=== PATIENT | female | born 1945 | race Caucasian/White ===

== ENCOUNTER → 2016-08-13 | Outpatient (REF) | payer MEDICARE ==
[2016-08-13 19:47] LABS: BILIRUBIN,URINE Negative (Negative); CLARITY,URINE Clear; COLOR,URINE Yellow; GLUCOSE, URINE (UA) 2+ (Negative); LEUKOCYTE ESTERASE, URINE Negative (Negative); PH,URINE 6.5 (5.0 - 8.0); UROBILINOGEN,URINE 0.2 mg/dL (0.2-1.0)
== END ==
LOC: LAB 15:42
PROVIDERS: ATTEND Obstetrics & Gynecology
DX: R32 Unspecified urinary incontinence (principal)
CPT/HCPCS: 81003; 87088

== ENCOUNTER 2016-08-16 10:50 | Outpatient (RCR) | payer MEDICARE, OTHER ==
[~2016-08-16 10:50] MED LIST: ALEN70TA47 PO; ATOR20TA PO; BUDE10.2 IH; CALC500T55 PO; CALC600T12 PO; CHLO25TA2 PO; CLPD75T PO; FLUT100B IH; FURO40TA4 PO; GLMP2T GT; HYDR-3702 PO; HYDR-3922 PO; INSASP1U SQ; INSU100I21 SQ; INSU100V5 SC; LOSA50TA2 PO; METO50TA7 PO; MTP50T PO; PAMI30VI8 SC; POTA99TA3 PO; PRED5TAB56 PO; VIT D PO
== END 2016-11-13 17:06 | disposition home or self-care (01) ==
LOC: DT 10:50
PROVIDERS: ATTEND Family Medicine
DX: E11.65 Type 2 diabetes mellitus with hyperglycemia (principal)
CPT/HCPCS: 97802

== ENCOUNTER → 2016-08-30 | Outpatient (CLI) | payer MEDICARE, OTHER | LOC: RAD 09:01 | PROVIDERS: ATTEND Family Medicine | DX: I65.23 Occlusion and stenosis of bilateral carotid arteries (principal); R26.9 Unspecified abnormalities of gait and mobility; R29.6 Repeated falls; R55 Syncope and collapse | CPT/HCPCS: 70544; 70551; 93880 ==

== ENCOUNTER → 2016-09-04 | Outpatient (CLI) | payer MEDICARE, OTHER | LOC: RAD 09:51 | PROVIDERS: ATTEND Family Medicine | DX: Z86.73 Personal history of transient ischemic attack (TIA), and cerebral infarction without residual deficits (principal); R29.6 Repeated falls | CPT/HCPCS: 70450 ==

== ENCOUNTER → 2016-09-14 | Outpatient (CLI) | payer MEDICARE, OTHER | LOC: RT 09:11 | PROVIDERS: ATTEND Internal Medicine | DX: R07.9 Chest pain, unspecified (principal) | CPT/HCPCS: 93005 ==

== ENCOUNTER → 2016-09-27 | Outpatient (CLI) | payer MEDICARE, OTHER ==
[~2016-09-27] MED LIST changes: +ROPIVACAINE 1% 10 MG/ML (NAROPIN) 10 ML AMPUL ONE; +SODIUM CHLORIDE VIAL (PF) 10 ML IV ONE; +methylPREDNISolone 80 MG/ML (DEPO MEDROL) VIAL IM ONE
--- NOTE | 2016-09-28 09:42 | PAIN MANAGEMENT ---
Date of note: 09/27/2016 Procedure: SI joint injection with fluoroscopy Fluoroscopy exposure time: 36 seconds The patient was referred to anesthesia for the purpose of a right SI joint injection secondary to acute right SI joint pain. She has radicular symptoms across her hip and buttock area that come down toward her knee. She does have some radiating symptoms down into her toes. She is not new to our services. She has received injections before by Larry Toure. Fluoroscopy was used for needle tip placement for a total time of 36 seconds. Based on presentation today we decided to proceed forward with a right SI joint injection. The patient was taken to the operating room for the use of fluoroscopy for placement of the needle. Informed consent was obtained. The patient was placed in the prone position. Landmarks were identified. The needle was advanced, as stated, utilizing aseptic technique and fluoroscopy for guidance of needle. Isovue 250, 0.3 mL was injected with proper spread of the Isovue. No apparent uptake to any vascular areas. Then 10 mL of 0.2% ropivacaine with Depo-Medrol 80 mg and normal saline were injected with negative aspiration every 2 mL. This was utilizing a 25-gauge spinal needle. Negative aspiration for heme, negative paresthesia. The needle was then removed. The patient was then turned to the sitting position where she remained for approximately 5. She was then released with vital signs stable and faculties intact. She is escorted back to her car per the [facility] RN via wheelchair. As the patient states her gait a little bit uneasy. This is not new to her, she came in uneasy on her gait. She is asked to follow up via my cell phone in 3 days. The patient state she understands those discharge instructions and I will follow her from there.
== END ==
LOC: PMC 10:55
PROVIDERS: ATTEND Family Medicine
DX: M53.3 Sacrococcygeal disorders, not elsewhere classified (principal); R26.9 Unspecified abnormalities of gait and mobility
CPT/HCPCS: G0260; J1040; J2795; J7050

== ENCOUNTER → 2016-10-19 | Outpatient (CLI) | payer MEDICARE, OTHER ==
[~2016-10-19] MED LIST changes: -ROPIVACAINE 1% 10 MG/ML (NAROPIN) 10 ML AMPUL ONE; -SODIUM CHLORIDE VIAL (PF) 10 ML IV ONE; -methylPREDNISolone 80 MG/ML (DEPO MEDROL) VIAL IM ONE
--- NOTE | 2016-10-19 11:00 | Diagnostic Imaging Report ---
PROCEDURE: MRI lumbar spine. TECHNIQUE: Multiplanar, multisequence MRI of the lumbar spine was performed without contrast. DATE: October 19, 2016. COMPARISON: None. INDICATION: 70-year-old female, low back pain. FINDINGS: There is normal lumbosacral spine alignment. There is moderate disc height loss at T12-L1 and L1-L2. There is severe disc height loss at L2-L3, L3-L4, L4-L5, and L5-S1. There are multilevel prominent endplate degenerative related marrow changes at these levels. There is no identified compression deformity. There is no pronounced bone marrow edema. There is a fatty filum terminale. The conus medullaris terminates at the level of L2. T12-L1: There is diffuse disc bulge. There is no foraminal stenosis or high-grade spinal stenosis. L1-L2: There is diffuse disc bulge. The facet joints and ligamentum flavum are unremarkable. There is no foraminal narrowing. There is mild spinal canal stenosis. L2-L3: There is a large diffuse disc bulge. There is prominence of the posterior epidural fat. There are mild bilateral facet degenerative changes without prominent ligamentum flavum hypertrophy. There is mild/moderate right and mild left foraminal narrowing. There is severe spinal canal stenosis. L3-L4: There is large diffuse disc bulge. There is prominence of the posterior epidural fat. There are mild to moderate bilateral facet degenerative changes with mild ligamentum flavum hypertrophy. There is moderate right and mild left foraminal narrowing. There is severe spinal canal stenosis. L4-L5: There is large diffuse disc bulge. There are moderate bilateral facet degenerative changes with ligamentum flavum hypertrophy. There is moderate bilateral foraminal narrowing. There is severe spinal canal stenosis. L5-S1: There is a large diffuse disc bulge. There are mild to moderate bilateral facet degenerative changes without prominent ligamentum flavum hypertrophy. There is moderate to severe bilateral foraminal narrowing. There is moderate spinal canal stenosis. The partially visualized portions of the sacroiliac joints to demonstrate sacroiliac degenerative changes. There is a T2 hyperintense right renal lesion not well characterized on this exam measuring 1.2 cm in size. IMPRESSION: 1. Multilevel advanced disc and facet degenerative changes of the lumbar spine with multilevel high-grade spinal and foraminal stenosis as described level by level above. Dictated by: Dictated on workstation # [id number]
== END ==
LOC: RAD 08:56
PROVIDERS: ATTEND Family Medicine
DX: M54.5 Low back pain (principal); M51.36 Other intervertebral disc degeneration, lumbar region
CPT/HCPCS: 72148

== ENCOUNTER → 2016-10-31 | Outpatient (CLI) | payer MEDICARE, OTHER ==
[~2016-10-31] MED LIST changes: +methylPREDNISolone 80 MG/ML (DEPO MEDROL) VIAL IM ONE
--- NOTE | 2016-10-31 13:49 | PAIN MANAGEMENT ---
Date of note: 10/31/2016 Procedure: Epidural steroid injection at L5-S1 This is a 71-year-old patient of Dr. Scotty Bonilla. The patient presents with longstanding history of spinal stenosis with lumbar radiculopathy in the right leg, primarily in the dermatome level of L5-S1. Informed consent was achieved for an epidural steroid injection at L5-S1. Orders for procedure verified. Patient denies any bleeding tendencies. After informed consent obtained, the patient was positioned for the lumbar epidural steroid injection. The area was prepped and draped using aseptic technique. The skin and overlying tissues were localized using 3 mL of 1% Preservative-Free lidocaine using a 25-gauge 1.5-inch needle. A 20-gauge Tuohy needle was advanced, using "loss of resistance" technique, to the epidural space. No blood, cerebral spinal fluid, pain, or paresthesia noted on entry of the epidural space. A 1 mL solution of Depo-Medrol 80 mg was injected slowly without mass volume effect. The patient was placed in supine position 15 minutes prior to being released with proper leg strength and vitals. Pre- and post procedure vital signs stable with no sensory or motor deficit noted. Instruction on followup contact and care provided to the patient.
== END ==
LOC: PMC 11:52
PROVIDERS: ATTEND Family Medicine
PROC: 3E0S33Z Introduction of Anti-inflammatory into Epidural Space, Percutaneous Approach (ICD-10-PCS; principal; 2016-10-31)
DX: M48.07 Spinal stenosis, lumbosacral region (principal)

== ENCOUNTER 2016-11-05 14:45 | Outpatient (RCR) | payer MEDICARE, OTHER ==
--- NOTE | 2016-09-10 14:38 | PT/OT/ST INITIAL EVALUATION ---
Department of Health and Human Services Form Approved Health Care Financing Administration OMB No. [id number] PLAN OF CARE/ASSESSMENT FOR OUTPATIENT REHABILITATION (Complete for Initial Claims Only) 1. PATIENT'S NAME Catalina Alicia 2. ACC # [id number] 3. HICN None 4. PROVIDER NO. [id number] 5. TYPE: SPT 6. PRIOR HOSPITALIZATION None 7. PRIMARY DX Dysphagia 8. SECONDARY DX Cognitive Communication Deficit 9. ONSET DATE Approximately 1 month ago 10. REFERRAL DATE September 05, 2016 11. SOC. DATE September 06, 2016 12. TIME OF EVAL 14:[address] Scotty Bonilla 13. CHARGES/UNITS NA 14. G CODES Currently [id number] 20 to 39% impaired Goal [id number] 1 to 19% impaired 15. PRIOR LEVEL OF FUNCTION; PERTINENT HISTORY (Prior therapy results, reason for referral.) S: Prior to therapy, the patient consented to today's evaluation and treatment. The patient is a 70-year-old female referred to therapy by Dr. Bonilla to address dysphagia, and a cognitive communication deficit. Personal health rating: The patient rates her overall and general health as fair. Mechanism of injury: She had a stroke in June of 2015. At that time she had some difficulties with dysphagia, and cognition. However, the patient's daughter states her choking, and her memory has gotten worse over the last month. Primary Complaint: She has been choking on food and water. Her daughter accompanied her to the appointment and states she chokes on liquids, at least once, if not twice a day and often the same things with foods. She has also been having worsening difficulties with memory. Prior level of function: Prior to this she did have difficulty in June 2015 after a stroke, but these cleared up and she has not had difficulty since until about the last month. Therapy History: She did receive speech therapy in June 2015 for swallowing difficulties. Social history: She lives at home by herself. Aggravating factors: No aggravating factors. Diagnostic testing: She had a modified barium swallow study completed in June 2015, but nothing has been completed since then. Past medical history: Includes diabetes, hypertension, hyperlipidemia, osteoporosis, asthma, CPAP, constipation, CKD stage 3, pneumonia. Past surgical history: Include tubal ligation, cholecystectomy, back surgery and bilateral knee replacement. Current medications: Medications were reviewed with the patient and none should impact the patient's swallowing, or memory abilities. Patient's Goal: Her goal for therapy is to be able to stay off thickener and strength muscles for swallowing. She also would like to increase cognition. 16. INITIAL ASSESSMENT/SAFETY PRECAUTIONS/MEDICAL COMPLICATIONS (Level of function at start of care. Be specific, use objective measures, list problems.) O: APPEARANCE AND OBSERVATION: Upon assessment the patient was given a bedside swallow. She had upper dentures and only approximately 8 teeth on the bottom; however, she states this does not give her difficulty with chewing. She has no back teeth on the bottoms. She had proper laryngeal and velar elevation. No labial or lingual weakness. The patient swallowed thin water with mild coughing and ate crackers with mild coughing and complaints of residual in the pharynx. The patient was then given pharyngeal exercises and these were gone over with her and the patient agreed to work on these at home, as well as in therapy. Special Tests: Ross Information Processing Assessment - Geriatric 2nd edition (RIPA ) Immediate memory: scaled score 4, moderate severity Temporal Orientation: scaled score 8, mild severity Spatial orientation: scaled score 4, moderate severity General Information: scaled score 3, moderate severity Contraindications: In the past the patient has not been real receptive to swallowing exercises and therapy for swallowing, as well as thickener and the patient agreed to try harder this time to work on the exercises for strengthening to prevent aspiration or aspiration pneumonia and to help prevent staying off of thickener. TODAY'S TREATMENT: Included going over the exercises and working with the patient on these. 17. INITIAL POC: (Specify procedures, modalities, short and exterminator helper termite goals) A: PROGNOSIS: Due to a personal health rating of fair, the patient has a fair prognosis for therapy. CONTRAINDICATIONS, PRECAUTIONS AND OBSTACLES TO DELIVERY OF CARE: Include the patient's noncompliance with therapy. INFORMED CONSENT: The diagnosis, prognosis, treatment plan, risks and expected outcomes were discussed with the patient and her daughter and she agreed to today's established plan of care. GOALS: 1. The patient to complete pharyngeal exercises and therapy and a home exercise program independently. 2. The patient to demonstrate no outward signs or symptoms of aspiration with thin liquids or regular solids. 3. The patient to complete 5 number immediate memory with 80% accuracy. 4. The patient to complete 5 word immediate memory with 80% accuracy. 5. The patient to complete temporal orientation with 100% accuracy. 6. The patient to complete word finding activities with 80% accuracy. It was recommended to the patient to intake nectar-thick liquids secondary to choking on liquids more than once a day. The patient stated that she would work on the exercises first before trying the thickener. P: Plan to treat the patient 1 time a week for 6 weeks in order to address dysphagia. Therapy to include pharyngeal exercises and diet modifications. 18. FREQUENCY 1 time a week 19. DURATION 6 weeks 20. FUNCTIONAL LEVEL (End of claim period) 21. PHYSICIAN SIGNATURE ? ON FILE OR ENTER HERE: 22. DATE: I certify the need for these services furnished under this plan of care and if for partial hospitalization. 23. CERTIFICATION FROM THROUGH FORM [facility]-700
--- NOTE | 2016-09-17 11:49 | PT/OT/ST INITIAL EVALUATION ---
Department of Health and Human Services Form Approved Health Care Financing Administration OMB No. [id number] PLAN OF CARE/ASSESSMENT FOR OUTPATIENT REHABILITATION (Complete for Initial Claims Only) 1. PATIENT'S NAME Catalina Alicia 2. ACC # [id number] 3. HICN 4. PROVIDER NO. [id number] 5. TYPE: OT 6. PRIOR HOSPITALIZATION NA 7. 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 8. TREATMENT DX Lack of coordination, attention and concentration deficit, weakness. 9. ONSET DATE 06/20/2016 10. REFERRAL DATE 09/05/2016 11. SOC. DATE 09/07/2016 12. TIME OF EVAL 3:00 p.m. to 4:30 p.m. 12. REFERRING PHYSICIAN Dr. Scotty Bonilla 13. CHARGES/UNITS Total 63 minutes 50 [id number] moderate complexity. 13 therapeutic exercise 14. G CODES [id number] 15. PRIOR LEVEL OF FUNCTION; PERTINENT HISTORY (Prior therapy results, reason for referral.) S: Prior to therapy, the patient consented to today's evaluation and treatment. The patient is a 70-year-old female referred to therapy by Dr. Scotty Bonilla to address occupational concerns following CVA. Description/mechanism of injury: The patient reports experiencing a CVA last June on 06/20/2015. The patient reports completing previously therapy services to improve performance. Pt reports noticing increased difficulty with memory, attention and weakness in right upper extremity. Home set up/Prior level of function: The patient lives alone in a 2-level home with a basement. All needs are on the main level. The patient has a tub/shower combination. Noted, the patient has recently been living with her daughter for the past 4 weeks secondary to her passing away. The patient reports she has been falling quite a bit and choking on food. The patient has a cane and a walker, and has fallen 2 to 3 times within the past month. Prior to onset, the patient was modified independent with ADLs and IADL tasks. Current functional performance and deficit: The patient is right handed. The patient reports difficulty with handwriting, opening doors, carrying and manipulating everyday items secondary to decreased strength. The patient has assistance from family for cooking and cleaning. Additionally the pt reports difficulty cutting food with a knife. Per patient and daughter report, the patient has difficulty with memory. The patient completes medication management independently, but daughter reports frequently forgetting to take insulin, take medication, forgetting appointments and days of the week. Pt reports mild pain in RUE and moderate tingling in right hand. Pain level and location: The patient reports tingling and numbness along dorsal and volar side of 5th digit. Aggravating factors: None Relieving factors: None Diagnostic testing: Pt has recently completed MRI testing and a CT scan on her hand and a Doppler Ultrasound completed neck. PMH (PT, OT, hospitalizations): Arthritis, diabetes, depression, heart problems, high blood pressure, stroke, lung problems and kidney problems. The patient has completed previous physical therapy, occupational therapy and speech therapy services following CVA in 06/20/15. Current medications: Advil, ibuprofen, antacids, decongestants, herbal supplements, and aspirin. Pt did not have a list of prescription medications available at this time. No medication to complicate therapy. Personal health rating: Fair Patient's Goal: The patient's goals are to improve memory and to improve strength in right hand. 16. INITIAL ASSESSMENT/SAFETY PRECAUTIONS/MEDICAL COMPLICATIONS (Level of function at start of care. Be specific, use objective measures, list problems.) O: APPEARANCE AND OBSERVATION: The patient appeared to her initial occupational therapy evaluation this date with her daughter. Upon observation the patient demonstrated difficulty manipulating and opening everyday items/containers secondary to decreased strength. When completing writing tasks, the patient demonstrated difficulty stabilizing right hand and forearm, resulting in difficulty forming letters legibly. When asked to draw a clock, the patient was observed to write numbers 12-10 on the right hand side. With cueing, pt able to spread out letters around sitka with some noted difficulty with space and forgetting to write number 11. ASSESSMENTS: Director Of Employer Services strength: right 23 pounds, left 38 pounds. Pinch 2 point: right 3 pounds, left 10 pounds. 3 point: right 4 pounds, left 10 pounds. Lateral pinch: right 6 pounds, left 13 pounds. 9-hole peg test: right 30.78 seconds, left 33.53 seconds. QuickDASH: The QuickDASH was completed this date with a score of 47.72. A score of 0 indicates no difficulties or limitations with daily activities or leisure tasks. Pt reports her maximum pain over the past 24 hours as a 2/10. MOCA: The Justin Cognitive Assessment was completed this date to assess cognitive domains of attention and concentration, executive function, memory and, language and orientation. The patient scored 11/30. The patient demonstration difficulty with visuospatial executive, naming, memory, attention and delayed recall. Noted, this may be due to the patient having increased stress with passing away and daughter receiving chemotherapy at this time. The therapist to reassess at a later date. NON-STANDARDIZED ASSESSMENTS: Sensation: The patient demonstrates impaired sensation in right hand with monofilament testing. CONTRAINDICATIONS, PRECAUTIONS AND OBSTACLES TO DELIVERY OF CARE: None. INFORMED CONSENT: The occupational therapy discussed the OT diagnosis, prognosis, treatment plan, risks and expected outcome with the patient. The patient and family agreed to the OT plan of care this date. COMPLEXITY LEVEL: The patient presents with decreased strength, decreased activity tolerance, impaired short term memory and attention and concentration deficits. Pt presents with co-morbidities affecting occupational performance. Required minimal verbal assistance during evaluation to completion evaluation, placing pt at a moderate complexity level. TODAY'S TREATMENT: Today's treatment included education about occupational therapy and the occupational therapy process. Provided education to daughter and patient on strategies including external and internal strategies to assist with memory. 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 The patient completed level 2 Theraputty exercises of gross grasp and pinch strength x15. 17. INITIAL POC: (Specify procedures, modalities, short and penitentiary goals) A: OT DIAGNOSIS: The patient presents to occupational therapy with decreased fine motor coordination skills, decreased strength, impaired memory and attention and concentration, and decreased ability to complete manipulation and handling tasks with right hand secondary to CVA. The patient would benefit from skilled occupational therapy services for design and administration of therapeutic activities and exercises to improve independence with daily activities and IADL tasks for return to prior level of function. PROBLEMS/IMPAIRMENTS/FUNCTIONAL LOSS: Include decreased strength, coordination, and activity tolerance of right hand to complete daily activities, requiring patient to rely on left hand and others to complete tasks. Additionally, pt presents with difficulties with higher level executive functions resulting in patient forgetting to take medications and requiring assistance from others for reminders. INTENDED OUTCOMES: Improve coordination skills, strength and activity tolerance of RUE to allow for increased participation and daily activities. Additionally to provide compensatory strategies and modifications to assist with memory and concentration difficulties. REHAB POTENTIAL/PROGNOSIS: The patient is expected to have a good prognosis with occupational therapy based on consistent therapy attendance and carryover of home exercise program and therapist's recommendations. SHORT TERM GOALS X3 WEEKS: 1. The patient will verbalize and demonstrate compliance with home exercise program. 2. The patient will demonstrate ability to manipulate 8 out of 10 items/containers with use of adaptations as needed to increase independence with daily tasks. 3. The patient will demonstrate ability to legibly write name 10 times with the use of adaptations as needed to increase easily of writing checks. FCI GOALS X5 WEEKS: 1. The patient will report a decrease in QuickDASH score of 15 to 20 points to indicate a meaningful change and increased independence with daily activities. 2. The patient will increase right flattening press operator strength by 10 pounds to increase ease of handling and manipulating everyday items. 3. The patient will demonstrate ability to cut food using right hand independently. 4. The patient will verbalize and demonstrate carryover of memory strategies to improve consistency with medication management. P: Plan to treat the patient 2 times a week for 5 weeks in order to address occupational concerns. The treatment is to include manual therapy, therapeutic exercise, active range of motion, passive range of motion, therapeutic activities, ADL/self-care, patient education/home exercise program and other treatments as indicated. 18. FREQUENCY 2 times a week 19. DURATION 5 weeks 20. FUNCTIONAL LEVEL (End of claim period) 21. PHYSICIAN SIGNATURE ? ON FILE OR ENTER HERE: 22. DATE: I certify the need for these services furnished under this plan of care and if for partial hospitalization. 23. CERTIFICATION FROM THROUGH FORM [facility]-700
--- NOTE | 2016-09-20 08:38 | PT/OT/ST INITIAL EVALUATION ---
Department of Health and Human Services Form Approved Health Care Financing Administration OMB No. [id number] PLAN OF CARE/ASSESSMENT FOR OUTPATIENT REHABILITATION (Complete for Initial Claims Only) 1. PATIENT'S NAME Catalina Alicia 2. ACC # [id number] [id number] 4. PROVIDER NO. [id number] 5. TYPE: PT 6. PRIOR HOSPITALIZATION None 7. PRIMARY DX Status post CVA 8. SECONDARY DX NA 9. ONSET DATE Worsening in the last 2 months 10. REFERRAL DATE NA 11. SOC. DATE 09/10/2016 12. TIME OF EVAL 2:56 p.m. 12. REFERRING PHYSICIAN Scotty Bonilla MD 13. CHARGES/UNITS NA 14. G CODES [id number] 15. PRIOR LEVEL OF FUNCTION; PERTINENT HISTORY (Prior therapy results, reason for referral.) S: Prior to therapy, the patient did consent to today's evaluation and treatment. The patient is a 70-year-old female referred to therapy by Dr. Scotty Bonilla to address status post CVA. Personal health rating: The patient does rate her overall and general health as fair. Description/mechanism of injury: The patient states she had a stroke approximately 1 year ago and had good recovery; however, she has noticed in the last 2 months that she has had a decline in function. The patient's daughter states she has noticed a significant decline as well. The patient has had approximately 2 falls in the last 2 weeks. The patient does state her legs feel tired and give out on her. The patient states she does not consistently fall in any one direction. She has fallen backward, to the side, and forward. The patient does state she frequently feels dizziness, which comes and goes. The patient additionally has noticed memory issues. The patient additionally states she has no energy and tires very easily. The daughter dose state that her mom does perform some activities at home such as heating meals. She has recently begun living on her own again as her recently and she was living with her daughter prior to a few weeks ago. The patient does not have a lifeline at home at this time, but does carry her cellphone with her. She additionally has a shower chair, so she takes care of all of her own ADLs and function. Prior level of function: Prior function includes the patient being independent with all activity. Current level of function: Currently the patient does ambulate with a single-point cane. She does have difficulty going up and down the 3-1/2 stairs to enter her house. She has decreased energy and has a recent history of falls. Therapy History: Includes PT in the past with good results. Obstacles to delivery of care: Include CVA with memory deficit. Pain level: The patient denies reports of significant pain, but does sometimes have some achiness in her hips and back, especially since her falls. Past medical history: Includes bilateral total knee replacement, chronic low back pain, CVA, a leaky valve in her heart and diabetic peripheral neuropathy. Current medications: The patient is unsure, but will bring a list at a future visit, but she is currently taking an inhaler for breathing problems. Patient's Goal: The patient's goal for physical therapy is to be able to ambulate without risk of falling and to go longer distances without rest. Her daughter's goal for her mother is for her to be able get up on her own after falling, which is currently unable to do. 16. INITIAL ASSESSMENT/SAFETY PRECAUTIONS/MEDICAL COMPLICATIONS (Level of function at start of care. Be specific, use objective measures, list problems.) O: APPEARANCE AND OBSERVATION: The patient presents as an older female who ambulates with a waddling gait pattern with significant decrease in step length. Upon observing her, she is able to ambulate approximately 50 feet before needing to take a seated rest break due to weakness in LE and shortness of breath. SPECIAL TESTS: Include the 6-minute walk test, in which she walks 225 feet with 4 seated rest breaks. Proprioception testing at the left great toe and ankle are within functional limits. On the right lower extremity is within functional limits as well. Monofilament testing was performed with a 5.07 monofilament for protective sensation and this was within normal limits on bilateral feet. Balance was assessed with narrow base of support with eyes closed. Able to perform for 1 to 2 seconds before losing balance backwards. Tandem stance was able to be performed for 1 to 2 seconds as well before losing her balance. RANGE OF MOTION/FLEXIBILITY: Throughout bilateral lower extremities is within functional limits and grossly equal bilaterally. STRENGTH: Strength throughout the right lower extremity is grossly 4-/5 throughout and throughout the left lower extremity 4/5. TODAY'S TREATMENT: Following the initial evaluation therapeutic exercise was performed and issued as a home exercise program. 17. INITIAL POC: (Specify procedures, modalities, short and termite control representative goals) A: The patient presents to physical therapy with diagnosis of status post CVA with resultant decreased strength, decreased endurance, decreased gait and decreased balance. PROGNOSIS: This patient does have a good prognosis with regular therapy attendance and compliance with home exercise program. This patient is expected to benefit from physical therapy services in order to have increased strength, increased endurance to be able to safely live on her own. OUTCOME ASSESSMENT: 6-minute walk test, which was 225 feet. INFORMED CONSENT: The diagnosis, prognosis, treatment plan, risks and expected outcomes were discussed with the patient and the patient did agree to today's established plan of care. SHORT TERM GOALS: 1. The patient to be independent and compliant with home exercise program in 1 week. 2. The patient to ambulate 100 feet without a seated rest with a single-point cane in 2 weeks to allow safe home mobility. 3. The patient able to hide cooking operator tandem position without upper extremity support for 10 seconds in order to demonstrate increased balance for decreased falls in 4 weeks. 4. The patient with a 6-minute walk test at least 525 feet in 6 weeks in order to safely ambulate in the community and to pentecostal. P: Plan to treat the patient 2 times per week for 6 weeks in order to address status post CVA. Therapeutic treatments to include possible manual therapy techniques, therapeutic exercise targeting active range of motion and strengthening and endurance training, gait training, balance proprioceptive training, training on getting up from the floor and patient education and home exercise program to be advanced as warranted. 18. FREQUENCY 2 times per week 19. DURATION 6 weeks 20. FUNCTIONAL LEVEL (End of claim period) 21. PHYSICIAN SIGNATURE ? ON FILE OR ENTER HERE: 22. DATE: I certify the need for these services furnished under this plan of care and if for partial hospitalization. 23. CERTIFICATION FROM THROUGH FORM [facility]-700
[~2016-11-05 14:45] MED LIST changes: -methylPREDNISolone 80 MG/ML (DEPO MEDROL) VIAL IM ONE
== END 2016-11-12 09:20 | disposition home or self-care (01) ==
LOC: PT 14:45
PROVIDERS: ATTEND Family Medicine
DX: I69.30 Unspecified sequelae of cerebral infarction (principal); R27.8 Other lack of coordination; R41.840 Attention and concentration deficit; R29.6 Repeated falls
CPT/HCPCS: 92507; 92523; 92526; 92610; 97110; 97112; 97140; 97161; 97166; 97530; 97535; G8978; G8979; G8984; G8985; G8986; G8996; G8997; G8998; G9168; G9169